=== PATIENT | male | born 1945 | race Caucasian/White ===

== ENCOUNTER → 2016-12-11 | Outpatient (CLI) | payer OTHER ==
[2016-12-11 08:36] LABS: CREATININE 1.1 mg/dL (0.7-1.3)
== END ==
LOC: CAT 07:55
PROVIDERS: Surgery
DX: K42.9 Umbilical hernia without obstruction or gangrene (principal); K57.90 Diverticulosis of intestine, part unspecified, without perforation or abscess without bleeding

== ENCOUNTER → 2018-06-28 | Outpatient (CLI) | payer OTHER | LOC: RAD 13:57 | DX: J98.4 Other disorders of lung (principal); R05 Cough; Z87.891 Personal history of nicotine dependence ==

== ENCOUNTER → 2018-09-16 | Outpatient (CLI) | payer OTHER | LOC: RAD 07-05 15:24 | DX: S22.42XA Multiple fractures of ribs, left side, initial encounter for closed fracture (principal); R07.89 Other chest pain; W19.XXXA Unspecified fall, initial encounter; Y93.89 Activity, other specified; Y92.89 Other specified places as the place of occurrence of the external cause; Y99.8 Other external cause status ==

== ENCOUNTER → 2019-04-01 | Outpatient (CLI) | payer OTHER ==
[2019-04-01 08:03] LABS: CALCIUM 8.9 mg/dL (8.5-10.1); CREATININE 1.3 mg/dL (0.7-1.3); POTASSIUM 4.3 mmol/L (3.5-5.1)
== END ==
LOC: MRI 06:58
PROVIDERS: Internal Medicine
DX: I65.23 Occlusion and stenosis of bilateral carotid arteries (principal); I25.10 Atherosclerotic heart disease of native coronary artery without angina pectoris

== ENCOUNTER → 2019-04-04 | Outpatient (CLI) | payer OTHER ==
[~2019-04-04] VITALS: Ht 175.3 cm; Wt 90.3 kg
[~2019-04-04] MED LIST: ASPIR 8181 MG PO; CELEXA40 MG PO; DIOVAN 80 MG TA80 M1 PO; IRBESARTAN75 MG PO; PLAVIX 75 MG TA75 M1 PO; REPATHA SU140 MG/1 M INJECTION
[2019-04-04 12:18] LABS: HEMATOCRIT 53.5 % (42.0-52.0); HEMOGLOBIN 17.3 gm/dL (14.0-18.0); MCH 28.6 pg (26.0-34.0); MCHC 32.4 g/dL (28.0-37.0); MCV 88.2 fL (80.0-100.0); RBC 6.06 mil/uL (4.50-6.00); RDW 12.6 % (10.5-14.5)
[2019-04-04 12:29] LABS: CALCIUM 9.4 mg/dL (8.5-10.1); CREATININE 1.3 mg/dL (0.7-1.3)
[2019-04-04 12:48] VITALS: BP 182/88
== END | disposition home or self-care (01) ==
LOC: CATH 11:47
PROVIDERS: Nuclear Medicine Nuclear Cardiology
DX: I65.22 Occlusion and stenosis of left carotid artery (principal); I70.1 Atherosclerosis of renal artery; I73.89 Other specified peripheral vascular diseases; I10 Essential (primary) hypertension; F41.9 Anxiety disorder, unspecified; J44.9 Chronic obstructive pulmonary disease, unspecified; E78.5 Hyperlipidemia, unspecified; I25.2 Old myocardial infarction; I25.5 Ischemic cardiomyopathy; N40.0 Benign prostatic hyperplasia without lower urinary tract symptoms; Z95.1 Presence of aortocoronary bypass graft; Z87.891 Personal history of nicotine dependence; Z98.890 Other specified postprocedural states; Z79.899 Other long term (current) drug therapy; Z79.82 Long term (current) use of aspirin

== ENCOUNTER 2019-04-18 06:03 | Inpatient (IN) | payer OTHER ==
[2019-04-15 10:58] LABS: ABSOLUTE NEUTROPHILS 3.7 thou/uL (1.4-8.2); BASOPHILS 0.6 % (0.0-2.0); EOSINOPHILS 4.3 % (0.0-3.0); HEMATOCRIT 50.3 % (42.0-52.0); HEMOGLOBIN 16.7 gm/dL (14.0-18.0); LYMPHOCYTES 29.8 % (24.0-44.0); MCH 28.9 pg (26.0-34.0); MCHC 33.2 g/dL (28.0-37.0); MCV 87.1 fL (80.0-100.0); MONOCYTES 7.9 % (1.0-8.0); PLATELET COUNT 199 thou/uL (150-400); POLYS 57.4 % (36.0-66.0); RBC 5.78 mil/uL (4.50-6.00); RDW 12.3 % (10.5-14.5); WBC 6.5 thou/uL (4.0-11.0)
[2019-04-15 11:01] LABS: URINE BILIRUBIN NEGATIVE (Negative); URINE BLOOD NEGATIVE (Negative); URINE CLARITY CLEAR; URINE COLOR YELLOW; URINE GLUCOSE-RANDOM* NEGATIVE (Negative); URINE KETONES TRACE (Negative); URINE LEUKOCYTES-REFLEX 1+ (Negative); URINE NITRITE-REFLEX NEGATIVE (Negative); URINE PROTEIN (DIPSTICK) NEGATIVE (Negative); URINE UROBILINOGEN 0.2 E.U./dl (0.2-1.0)
[2019-04-15 11:10] LABS: APTT 26.2 Seconds (24.5-32.8); PROTIME 9.5 Seconds (9.3-11.4)
[2019-04-15 11:13] LABS: ALBUMIN 3.3 g/dL (3.4-5.0); CALCIUM 8.9 mg/dL (8.5-10.1); CREATININE 1.3 mg/dL (0.7-1.3); POTASSIUM 4.5 mmol/L (3.5-5.1); TOTAL BILIRUBIN 0.2 mg/dL (<0.1-1.0); TOTAL PROTEIN 6.9 g/dL (6.4-8.2)
[2019-04-15 11:24] LABS: BACTERIA-REFLEX 1-9 Few /HPF (None Seen); CASTS None Seen /LPF (None Seen); CRYSTALS None Seen /LPF (None Seen); SQUAMOUS 4-10 Moderate /LPF (0-3); URINE RBC None Seen /HPF (0-2); URINE WBC-REFLEX 0-5 Rare /HPF (0-5)
--- NOTE | 2019-04-16 08:00 | EKG ---
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 JUAREZ : 1945 Requested By: Colt Brunner Order Number: [id number] : Haile Joyner Measurements Intervals [place] Rate: 69 P: 45 NC: 149 QRS: 29 QRSD: 108 T: 149 QT: 421 QTc: 451 Interpretive Statements Sinus rhythm Multiple ventricular premature complexes Abnormal R-wave progression, early transition Inferior infarct, old Lateral leads are also involved Compared to ECG 11/27/2005 12:54:16 Ventricular premature complex(es) now present Myocardial infarct finding still present Electronically Signed On 04-16-2019 8:00:16 CDT by Haile Joyner [email or web address] <ELECTRONICALLY SIGNED> By: Haile Joyner MD 04/16/19 0800 1055 1055 Haile Joyner MD /EPI
[2019-04-18] VITALS (22 sets, daily range): BP systolic 114–166; BP diastolic 50–94
[~2019-04-18] VITALS: Ht 175.3 cm; Wt 95.3 kg
[2019-04-18 16:36] LABS: HEMATOCRIT 46.9 % (42.0-52.0); HEMOGLOBIN 15.3 gm/dL (14.0-18.0); MCH 28.4 pg (26.0-34.0); MCHC 32.7 g/dL (28.0-37.0); RBC 5.39 mil/uL (4.50-6.00); RDW 12.6 % (10.5-14.5); WBC 10.1 thou/uL (4.0-11.0)
--- NOTE | 2019-04-18 18:00 | NUR ---
Neuro intact. Pt requesting to get up to chair at bedside. Tolerated well. Void 400ml standing via urinal after ceja dc'd at 1500. VSS. Hydrocodone 2 po for c/o headache and left neck pain.
[2019-04-19] VITALS (13 sets, daily range): BP systolic 111–143; BP diastolic 51–74
[2019-04-19 05:27] LABS: HEMATOCRIT 42.6 % (42.0-52.0); MCH 28.9 pg (26.0-34.0); MCHC 32.9 g/dL (28.0-37.0); MCV 87.9 fL (80.0-100.0); RBC 4.85 mil/uL (4.50-6.00); RDW 12.7 % (10.5-14.5); WBC 10.1 thou/uL (4.0-11.0)
[2019-04-19 05:36] LABS: CALCIUM 8.2 mg/dL (8.5-10.1); CREATININE 1.2 mg/dL (0.7-1.3)
[2019-04-19 05:37] LABS: POTASSIUM 5.1 mmol/L (3.5-5.1)
--- NOTE | 2019-04-19 10:54 | NUR ---
SHift assessment Pt alert, oriented x 4. Pt has been sitting on recliner. LS clear. L BBB w/ SR & S.Roel. Traceable edema on ankle, jazmyn. A. line on R radial was intact, clear. BP was beteen 110s to 140s. IVF was completed and left the IV line as SL. Pt's gait was steady while he was using urinla. Urine was light yellow and clear. 1008-Pt has been waiting for Dr. Brunner this morning. Pt asked when Dr. Brunner would come so many times and requested this nurse to call Dr. Brunner. This nurse discontinued A-line since pt's bp was stable and this nurse tried to reduce pt's anxiety re going home. Pt's appetite was great this morning.
--- NOTE | 2019-04-19 12:44 | NUR ---
Discharge notes; Pt is discharged home. Discharge instructions (activity, F/U, medication, diet, & venous access care) were reviewed w/ pt and spouse. Pt and the spouse verbalized understanding. IVs were discontinued. Flu vaccine was given on L deltoid. Pt's belongings were w/ pt. Pt was taken out to lobby via W/C by this nurse.
--- NOTE | 2019-04-20 07:56 | O ---
[facility] [place] [address] OPERATIVE REPORT Name: MARTINEZGEOVANNA Room #: 247-P [facility] IN M.R.#: [id number] Admission: 04/18/19 Attend Phys: Colt Brunner MD Discharge: 04/19/19 Date of : 43 Report #: [id number] THIS REPORT FOR: //name// CC: Colt Velez DATE OF SERVICE: 04/18/2019 PREOPERATIVE DIAGNOSIS: Left carotid artery stenosis. POSTOPERATIVE DIAGNOSIS: Left carotid artery stenosis. OPERATION: Transcarotid artery revascularization clinically left with intraoperative arteriograms. SURGEONS: Dr. Colt Brunner and Dr. Colton Perkins. ANESTHESIA: General. INDICATIONS: The patient is a 74-year-old with high-grade left internal carotid artery stenosis, right side has trivial disease. The patient has diabetes, not well controlled. FINDINGS AND TECHNIQUE: After general anesthesia was established, an incision was made above the clavicle to expose the common carotid between the sternal and clavicular heads of the sternocleidomastoid muscle. A 5-0 Prolene pursestring was placed and then 10,000 units of heparin were given. Access was gained to the right femoral artery with a vascular needle and ultrasound guidance and then a guidewire and exchanged catheters were used to pass the femoral component of the carotid, femoral shunt. An arterial needle was used to enter the common carotid and the fine wire was passed antegrade into the carotid and then over at the introducer, catheter was passed for exchange for a stiff wire. Over the stiff wire, introducer was placed in good position and the artery was ascertained. With this information, the carotid component of the shunt was placed and secured in position. It should be mentioned that a CT was checked and was found to be satisfactory. Common carotid was clamped and good flow through the shunt was ascertained. Through the introducer in the neck, a 4.0 x 30 Cordis balloon was used to predilate the lesion. Arteriogram was taken. This showed good dilatation and then a 4 x 40 artery stent was placed with a 6 x 30 Cordis balloon for a [facility] [address] [place] [address] OPERATIVE REPORT Name: GEOVANNA HENRIQUEZ Room #: 247-P [facility] IN M.R.#: [id number] Admission: 04/18/19 Attend Phys: Colt Brunner MD Discharge: 04/19/19 Date of : 43 Report #: [id number] post-dilatation. After waiting the requisite amount of time, an arteriogram was taken that showed good position of the stent and successful dilatation of the lesion. With this information, the antegrade flow was reestablished. The shunt was . The femoral and carotid components were removed. The carotid pursestring was secured and an additional stitch was placed at the carotid insertion site. Protamine was given to reverse the heparin. When hemostasis was satisfactory, the neck incision was closed in layers with interrupted platysmal sutures and running skin sutures. Pressure was applied to the groin. The patient tolerated all of this well. It should be mentioned that blood pressure was maintained at an elevated level during the antegrade occlusion and allowed to normalize once antegrade flow had been reestablished. All counts reported as correct. <ELECTRONICALLY SIGNED> By: Colt Brunner MD 04/20/19 0756 1151 1326 Colt Brunner MD /nt
== END 2019-04-19 12:35 | disposition home or self-care (01) | DRG 36 ==
LOC: TBA 06:03 → PRE 06:46 → ICU 13:20 → PRE 13:33 → ICU 04-19 12:35
PROVIDERS: Physician Assistant; ADMIT Surgery Vascular Surgery
PROC: 037L3DZ Dilation of Left Internal Carotid Artery with Intraluminal Device, Percutaneous Approach (ICD-10-PCS; principal; 2019-04-18)
PROC: 3E0234Z Introduction of Serum, Toxoid and Vaccine into Muscle, Percutaneous Approach (ICD-10-PCS; 2019-04-19)
DX: I65.22 Occlusion and stenosis of left carotid artery (principal); G47.33 Obstructive sleep apnea (adult) (pediatric); I10 Essential (primary) hypertension; E78.5 Hyperlipidemia, unspecified; I25.10 Atherosclerotic heart disease of native coronary artery without angina pectoris; I25.5 Ischemic cardiomyopathy; Z99.81 Dependence on supplemental oxygen; Z79.899 Other long term (current) drug therapy; Z23 Encounter for immunization; I25.2 Old myocardial infarction; Z95.5 Presence of coronary angioplasty implant and graft; Z95.1 Presence of aortocoronary bypass graft
CPT/HCPCS: 10204; 47375; 48888; 50010; 50101; 50386; 50417; 50455; 51751; 54118; 56524; 56526; 56528; 62110; 62900; 65020; 65040; 65090; 70005

== ENCOUNTER → 2020-01-30 | Outpatient (CLI) | payer OTHER | LOC: SJCVCIMAG 13:31 | PROVIDERS: ATTEND Internal Medicine | DX: I65.23 Occlusion and stenosis of bilateral carotid arteries (principal); R94.31 Abnormal electrocardiogram [ECG] [EKG]; I25.10 Atherosclerotic heart disease of native coronary artery without angina pectoris; I25.5 Ischemic cardiomyopathy; I10 Essential (primary) hypertension; E78.5 Hyperlipidemia, unspecified; J45.909 Unspecified asthma, uncomplicated; I25.2 Old myocardial infarction; Z79.82 Long term (current) use of aspirin; Z79.899 Other long term (current) drug therapy; Z82.49 Family history of ischemic heart disease and other diseases of the circulatory system; Z87.891 Personal history of nicotine dependence; Z95.828 Presence of other vascular implants and grafts ==

== ENCOUNTER → 2020-03-08 | Outpatient (CLI) | payer OTHER | LOC: MRI 14:13 | PROVIDERS: ATTEND Psychiatry & Neurology Neuromuscular Medicine | DX: R41.82 Altered mental status, unspecified (principal); I25.10 Atherosclerotic heart disease of native coronary artery without angina pectoris; Z86.79 Personal history of other diseases of the circulatory system ==

== ENCOUNTER → 2020-08-09 | Outpatient (CLI) | payer OTHER | LOC: SJCVC 14:47 | PROVIDERS: ATTEND Internal Medicine | DX: I11.9 Hypertensive heart disease without heart failure (principal); R94.31 Abnormal electrocardiogram [ECG] [EKG]; I25.10 Atherosclerotic heart disease of native coronary artery without angina pectoris; I25.5 Ischemic cardiomyopathy; I65.23 Occlusion and stenosis of bilateral carotid arteries; E78.5 Hyperlipidemia, unspecified; J45.909 Unspecified asthma, uncomplicated; I25.2 Old myocardial infarction; Z79.82 Long term (current) use of aspirin; Z79.899 Other long term (current) drug therapy; Z82.49 Family history of ischemic heart disease and other diseases of the circulatory system; Z87.891 Personal history of nicotine dependence ==

== ENCOUNTER → 2021-02-07 | Outpatient (CLI) | payer OTHER | LOC: SJCVC 11:35 | PROVIDERS: ATTEND Internal Medicine | DX: R94.31 Abnormal electrocardiogram [ECG] [EKG] (principal); I25.10 Atherosclerotic heart disease of native coronary artery without angina pectoris; I25.5 Ischemic cardiomyopathy; I65.23 Occlusion and stenosis of bilateral carotid arteries; I11.0 Hypertensive heart disease with heart failure; E78.5 Hyperlipidemia, unspecified; I25.2 Old myocardial infarction; G40.909 Epilepsy, unspecified, not intractable, without status epilepticus; I73.9 Peripheral vascular disease, unspecified; G47.33 Obstructive sleep apnea (adult) (pediatric); F41.9 Anxiety disorder, unspecified; Z79.899 Other long term (current) drug therapy; Z87.891 Personal history of nicotine dependence ==

== ENCOUNTER → 2021-08-11 | Outpatient (CLI) | payer OTHER | LOC: SJCVCIMAG 09:22 | PROVIDERS: ATTEND Internal Medicine | DX: I65.23 Occlusion and stenosis of bilateral carotid arteries (principal); I25.10 Atherosclerotic heart disease of native coronary artery without angina pectoris; I25.5 Ischemic cardiomyopathy; I10 Essential (primary) hypertension; E78.5 Hyperlipidemia, unspecified; J44.9 Chronic obstructive pulmonary disease, unspecified; J45.909 Unspecified asthma, uncomplicated; F41.9 Anxiety disorder, unspecified; I73.9 Peripheral vascular disease, unspecified; G47.30 Sleep apnea, unspecified; N40.0 Benign prostatic hyperplasia without lower urinary tract symptoms; Z95.828 Presence of other vascular implants and grafts; Z79.82 Long term (current) use of aspirin; Z79.899 Other long term (current) drug therapy; Z87.891 Personal history of nicotine dependence ==

== ENCOUNTER → 2021-09-07 | Outpatient (CLI) | payer OTHER | LOC: RAD 09:10 | PROVIDERS: ATTEND Internal Medicine | DX: R06.00 Dyspnea, unspecified (principal) ==